=== PATIENT | female | born 1975 | race Caucasian/White ===

== ENCOUNTER → 2016-08-01 | Outpatient (CLI) | payer BC ==
[~2016-08-01] MED LIST: BACTRIM 400 MG-1 TAB PO; CIPRO 500MG TA500 MG PO; HYDROCODONE/ACE1 TA5 PO; NOMEDS XX; ONDANSETRON4 M1 PO; PYRIDIUM200 M2 PO; TAMSULOSIN HYD0.4 MG PO; VICODIN 5/500 T1 TAB PO; ZOFRAN ODT4 MG PO
[2016-08-01 09:44] LABS: HEMOGLOBIN 15.4 g/dL (12.2-16.2); LYMPH # 1.9 K/mm3 (0.7-4.5); LYMPH % 24.9 % (10-50.0)
[2016-08-01 13:26] LABS: BUN 9 mg/dL (7-18)
[2016-08-01 13:29] LABS: GFR (ESTIMATED) 91 ML/MIN (59-)
== END ==
LOC: LAB 09:13
PROVIDERS: Nurse Practitioner Obstetrics & Gynecology
DX: Z01.812 Encounter for preprocedural laboratory examination (principal); N92.0 Excessive and frequent menstruation with regular cycle

== ENCOUNTER 2016-08-03 06:09 | Day surgery (SDC) | payer BC ==
[~2016-08-03] VITALS: Ht 170.2 cm; Wt 90.7 kg
--- NOTE | 2016-08-03 08:08 | Operative Note ---
Procedure/Operative Record Procedure Date of procedure: 08/03/16 Pre-Op Dx: Menorrhagia Post-Op Dx: Menorrhagia Procedure performed: Hysteroscopy, D and C, NovaSure ablation Surgeon: Dr. Brian Duong Medicinal Chemist(s): None Anesthesia: Jourdan To EBL (ml): 50 Clinical note: She is a 41-year-old lady who complains of extremely heavy periods. She has had normal blood work and had an endometrial biopsy that was negative for hyperplasia. She had an ultrasound that did not show any large fibroids. After having discussed the risk and benefits she elected to have a NovaSure ablation. Operative findings: She had an anteverted bulky uterus, the endometrium was fluffy and shedding. Otherwise it appeared atrophic. Operative note: She was taken the operating room where LMA anesthesia was found be adequate. She was prepped and draped in the normal sterile fashion in the lithotomy position. A weighted speculum was placed in the vagina and the anterior lip of the cervix was grasped with a tenaculum. The cervix was dilated to approximately 6 mm. I then inserted a hysteroscope with saline as a distending media. The findings were as previous see dictated. I then performed a gentle curettage with a medium curet. The uterus was sounded to 8 cm and the endometrial cavity was 5.5 cm. I inserted the NovaSure device within the uterine cavity and it was found be 4 cm wide. We then ran the device through its program. I injected approximately 25 mL of 0.5 percent ropivacaine at the 3:00, 5:00, 7: 00, and 9:00 positions. The patient tolerated the procedure well and was taken to the recovery room in excellent condition. All sponge instrument and needle counts were correct. This was a blood loss was approximately 50 mL. Conplications: None Specimens: Endometrial curettings at 0808
[2016-08-03 09:34] VITALS: BP 135/68
== END 2016-08-03 09:16 | disposition home or self-care (01) ==
LOC: SDC 06:09
PROVIDERS: Nurse Practitioner Obstetrics & Gynecology
PROC: 0U598ZZ Destruction of Uterus, Via Natural or Artificial Opening Endoscopic (ICD-10-PCS; principal; 2016-08-03 07:30)
DX: N92.0 Excessive and frequent menstruation with regular cycle (principal)
CPT/HCPCS: J0131; J2405

== ENCOUNTER → 2017-05-23 | Outpatient (CLI) | payer BC ==
[2017-05-23 13:44] LABS: HEMOGLOBIN 16.2 g/dL (12.2-16.2); LYMPH # 2.5 K/mm3 (0.7-4.5); LYMPH % 22.2 % (10-50.0)
[2017-05-23 14:35] LABS: BUN 11 mg/dL (7-18)
[2017-05-23 14:43] LABS: GFR (ESTIMATED) 91 ML/MIN (59-)
[2017-05-24 09:38] LABS: HBsAg Screen Negative (Negative); Hep A Ab, IgM Negative (Negative); Hep B Core Ab, IgM Negative (Negative); Hep C Virus Ab <0.1 (0.0-0.9)
== END ==
LOC: LAB 13:20
PROVIDERS: Nurse Practitioner Family
DX: Z00.00 Encounter for general adult medical examination without abnormal findings (principal)